=== PATIENT | female | born 1960 | race Caucasian/White ===

== ENCOUNTER 2016-05-26 18:59 | Emergency (ER) | payer OTHER ==
[2016-05-26 19:33] VITALS: TEMP 98.2; O2SAT 97
[2016-05-26] MEDS ORDERED: KETOROLAC 30 MG/1 ML SDV IM ONE (21:19)
[2016-05-26] MEDS ORDERED: HYDROCOD/APAP 5/325 PREPACK#6 BTL TAKEHOME ONE (21:20)
[2016-05-26] MEDS ORDERED: HYDROCODONE/APAP 5/325 TAB PO ONE (21:20)
--- NOTE | 2016-05-26 21:24 | UCPHY ---
H & P Time Seen by Provider: 05/26/16 20:40 Patient Type: Established HPI/ROS: HPI Back pain. 55-year-old female by private vehicle with her . This patient has a history of chronic lower back pain. She has been dealing with this for years. It involves her right lower sacroiliac joint. She has seen multiple specialists. She is to begin pelvic adjustment therapy on Saturday. She reports acute exacerbation of this right lower back pain ongoing now for 12-24 hours. She has had no bowel or bladder incontinence. No loss of sensation or weakness in her lower extremities. She denies any history of malignancy. No abdominal pain. No fever. No other complaints. She is asking for pain medication. ROS: Constitutional: No fever, no chills. No weakness. Eyes: No discharge. No changes in vision. ENT: No sore throat. No nasal congestion or rhinorrhea. Respiratory: No cough. No shortness of breath. Cardiac: No chest pain, no palpitations. Gastrointestinal: No abdominal pain, no vomiting, no diarrhea. Genitourinary: No hematuria. No dysuria or increased frequency with urination. Musculoskeletal: No back pain. No neck pain. No myalgias or arthralgias. Skin: No rashes. Neurological: No headache. No focal weakness or altered sensation. Past medical history: As above. Social history: Physical Exam: General Appearance: Alert, no distress. This patient is responding to questions appropriately and in full sentences. This patient appears well- hydrated and well-nourished. Eyes: Pupils equal and round no pallor or injection. No lid edema, erythema or injection. Back Exam: She has some mild and vague tenderness on palpation over the right sacroiliac joint. No soft tissue swelling, ecchymosis, erythema or warmth associated with this area. She has no midline thoracic, lumbar, sacral tenderness on palpation. She has a negative same side and cross-side straight leg raise test. She is neurologically intact in all myotomes in dermatomes of the bilateral lower extremities. Gastrointestinal: Abdomen is soft and nontender, no masses, bowel sounds normal. No focal tenderness at McBurney's point. No Wood sign. Neurological: Motor sensory function is grossly intact. Cranial nerves are normal. Gait is normal. Skin: Warm and dry, no rashes. Extremities are symmetrical. All joints range without pain or impingement. Psychiatric: No agitation. No depression. Database: EKG: Imaging: Procedures: Emergency department course: No contraindications to NSAIDs. No history of renal dysfunction. She was given 60 mg of IM Toradol and to [place] tablets. I will prescribe her a limited prescription of [place]. She currently has Flexeril. She is to follow up as scheduled with her back specialist on Saturday. Return to emergency department precautions and follow-up thoroughly reviewed with her. All of her questions were answered. She was discharged in good condition. Differential Diagnosis: The differential diagnosis on this patient includes but is not limited to sacroiliac strain, chronic back pain. Transverse myelitis, diskitis, fracture, subluxation, dislocation, epidural compression syndrome, epidural abscess, AAA, cauda equina syndrome unlikely. This represents a partial list of diagnoses considered. These considerations are based on history, physical exam, past history, reassessment and diagnostic testing. Smoking Status: Never smoked Constitutional: Initial Vital Signs Temperature (C) 36.8 C 05/26/16 19:30 Heart Rate 70 05/26/16 19:30 Respiratory Rate 16 05/26/16 19:30 Blood Pressure 101/55 L 05/26/16 19:30 O2 Sat (%) 97 05/26/16 19:30 O2 Delivery Mode Room Air Allergies/Adverse Reactions: codeine [Codeine] Adverse Reaction (Intermediate, Verified 05/26/16 19:33) Vomiting Home Medications: Medication Instructions Recorded Estrogens, Conjugated 05/26/16 Flexeril 05/26/16 Prednisone 05/26/16 Testosterone 05/26/16 Departure - Departure Disposition: Home, Routine, Self-Care Clinical Impression: Chronic lower back pain Condition: Good Instructions: Chronic Back Pain (ED) Additional Instructions: Read and follow provided instructions. Follow-up with your back specialist as scheduled on Saturday for further evaluation and management. [place]/Percocet dosin-2 every 4-6 hours for [address] not drive on this medication. Return to the emergency department for worsening pain, bowel or bladder incontinence, loss of sensation or weakness in her extremities or other serious concerns. Referrals: Rhonda Gudino MD [Primary Care Provider] - As per Instructions - PQRS PQRS Measurement: 134: Depression screening and followup, PRIME MD-PHQ2 (12 years and older) Over the last 2 weeks, how often have you been bothered by any of the following problems? 1. Feeling down, depressed, or hopeless? 2. Little interest or pleasure in doing things? Answered no to both questions. 130: Documentation of medications. Reviewed all patient medications, doses, route and frequency. 226: Do you smoke? No. 47: 65 and older: Advanced care planning. Patient designates surrogate decision maker as spouse. 51: 18 years old and older with diagnosis of COPD, spirometry performance. NA 52: 18 years old and older with COPD and symptoms of COPD or FEV1<60% predicted prescribed a B Agonist. NA
[2016-05-26 21:49] VITALS: BP 100/55; PULSE 16; RESP 70
== END 2016-05-26 21:49 | disposition home or self-care (01) ==
LOC: CED 18:59
DX: M54.5 Low back pain (principal)
CPT/HCPCS: 96372-PO; 99214-PO; G0463-PO; J1885